=== PATIENT | male | born 1990 | race Caucasian/White ===

== ENCOUNTER 2016-11-19 17:23 | Emergency (ER) | payer OTHER ==
[~2016-11-19] VITALS: Ht 170.2 cm; Wt 56.8 kg
[2016-11-19 18:56] VITALS: BP 116/78; PULSE 76; RESP 16; O2SAT 100
--- NOTE | 2016-11-19 19:12 | ED.REPORT ---
HPI- Male Date of Service Nov 19, 2016 ED Provider: Zaire Naylor DO A 26 year old male with a history of IV drug use presents to the ED complaining of right sided testicular pain. This is accompanied by an inability to maintain an erection. The pt has recently been informed that he was exposed to syphilis several months ago. Nursing Notes Stated Complaint: TESTICULAR PAIN Chief Complaint: Male Abdominal Pain Nursing Notes Reviewed: Yes Allergies: Coded Allergies: No Known Allergies (Unverified , 08/16/16) General Time Seen by MD: 19:11 Chief Complaint Testicle painful right Hx Obtained From: Patient Arrived By: Walk-in Onset Occurred: More than a week ago... Recent Healthcare: No recent doctor visit, No recent hospitalization Similar Sx Previous: No Past Medical History Past Medical History Syphilis exposure Asthma Past Surgical History none reported Smoking History Current Every Day Smoker Social History Alcohol Use: Denies alcohol use Drug Use: IV drugs Ambulatory Status Independent Review of Systems Review of Systems Note: inability to maintain erection Constitutional: Denies: Fever Male: Reports Testicular pain Musculoskeletal: Denies: Back pain, Neck pain Skin: Denies Rash Complete sys rev & neg: except as marked. Physical Exam Initial Vital Signs Vital Signs (First) Date Time Temp Pulse Resp B/P Pulse Ox O2 Delivery O2 Flow Rate FiO2 11/19/16 18:56 36.8 76 16 116/78 100 Room Air Initial VS: Reviewed exam deferred General/Constitutional: Awake, Alert Abdomen: Atraumatic, Soft, Non-tender Skin: Atraumatic, Color NL, No rash, Warm, Dry Head / Eyes: Atraumatic, Normocephalic, PERRL, EOMI ENT: Atraumatic, Airway patent, Mucous membranes moist Neck: Atraumatic, Supple, Full range of motion Respiratory / Chest: Atraumatic, Breath sounds NL, Breath sounds = bilat, No respiratory distress Cardiovascular: Heart rate NL, Regular rhythm, Heart sounds NL Back: Atraumatic, Full range of motion Upper Extremity / MS: Atraumatic, Full range of motion Lower Extremity / Pelvis / MS: Atraumatic, Full range of motion Neurologic: Oriented X3, Speech NL, No motor deficits, No sensory deficits Psychiatric: Affect NL, Mood NL Interpretation & Diagnostics Interpretation & Diagnostics: Testicular US: IMPRESSION: 1. No evidence for testicular torsion. No testicular mass. 2. No evidence for epididymitis. 3. A small calcific density in the inferior medial aspect of the right testes. Microabscesses of the testes has increased risk for testicular neoplasm. Recommend patient education for self examination. Dictated by: Jennifer Paniagua M.D. on 11/19/2016 at 20:50 Approved by: Jennifer Paniagua M.D. on 11/19/2016 at 20:55 Lab Results Interpretation Test 11/19/16 21:40 Pulse Oximetry Interpretation Pulse Oximetry Interpretation: 100% on room air Pulse Oximetry: Pulse Ox normal Re-Eval/Medical Decision Med Decision/Clinical Course Possible exposure to syphilis. No active ulcerations or penile discharge at this time. Tender right testicle. Ultrasound shows a calcific deposit within the testicle. RPR has been ordered. We will medicate empirically for syphilis treatment as well as GC/chlamydia. Torsion ruled out. Testicular abscess ruled out. We will refer to urology for follow-up. Recommend testicular self examination. Naprosyn for pain. HIV testing to be discussed with his primary care. Follow-up with the RPR as well with his primary care. Definitive testing indicated if the RPR is positive. Source of Hx: Old records Re-Evaluation/Progress : Time of Eval: 21:00 Patient Status: Condition improved Re-Evaluation/Progress Note: Pt rechecked, who is resting comfortably. He is informed of his US result, diagnosis, and plan for discharge. The pt understands and agrees with the plan. All questions are addressed at this time. Counseled Regarding: Diagnosis, Lab results, Need for follow-up, When/why to return to ED Discharge & Departure Impression: Primary Impression: Testicular pain, right Additional Impression: Exposure to syphilis Disposition: Home Discharge Condition All VS Reviewed: Yes Condition: Stable Patient Instructions: Syphilis (ED), Testicle Pain (ED), Testicular Self- examination (DC) Additional Instructions: The ultrasound revealed a small calcium deposit in your right testicle. This needs to be followed up with closely. You need to perform testicular self- examinations. Read the instructions given. I would like you to set up a follow -up with your primary care physician as well as urology. Due to the fact that you were possibly exposed to syphilis you have been treated. Syphilis is notoriously associated with other sexually-transmitted infections. You have been treated for possible gonorrhea as well as Chlamydia. I would like you to take doxycycline twice daily for 7 days. This too is to prevent or treat sexual transmitted infections. Avoid direct sunlight and sun lamps while taking the doxycycline. Follow-up with the syphilis blood test with your primary care physician this week. Consider HIV testing as well. Take Naprosyn twice daily as directed for pain. Do not hesitate to return if any problem or any worsening symptoms. Referrals: Elaine Cruz MD [facility] Mitch Attestation Portions of this note were transcribed by Mercedes Galvan. I, Dr. Naylor personally performed the history, physical exam and medical decision-making; I reviewed and confirmed the accuracy of the information in the transcribed note. Signed by: Mitch Craig, 11/19/2016 and 22:36. copies to: Elaine Cruz MD; [facility] Zaire Naylor DO Nov 19, 2016 19:12 MERCEDES GALVAN Nov 19, 2016 19:29
--- NOTE | 2016-11-19 20:56 | DRSVH ---
PROCEDURE: US TESTICULAR SONOGRAM WITH DOPPLER INDICATIONS: 26 year-old man with right testicular pain. TECHNIQUE: Real-time scanning was performed of the scrotum and testicles, with image documentation. Color and p ulse Doppler interrogation was performed of both testicles. COMPARISON: None. FINDINGS: Right: Testicle is normal in size at 4.6 x 2.0 x 3.1 cm, and homogenous in echotexture. There is a calcific density in the inferior mid aspect of the testes. Epididymis is normal in overall size and m orphology. No hydrocele or varicoceles. Overlying scrotal skin is normal in thickness. Left: Testicle is normal in size at 4.1 x 1.9 x 2.7 cm, and homogeneous in echotexture. Epididymis is normal in overall size and morphology. No hydrocele or varicoceles. Overlying scrotal skin is no rmal in thickness. Doppler: Color and pulse Doppler demonstrate normal and symmetric arterial and venous flow in both t esticles. No hyperemia in epididymides. IMPRESSION: 1. No evidence for testicular torsion. No testicular mass. 2. No evidence for epididymitis. 3. A small calcific density in the inferior medial aspect of the right testes. Microabscesses of the testes has increased risk for testicular neoplasm. Recommend patient education for self examination. Dictated by: Jennifer Paniagua M.D. on 11/19/2016 at 20:50 Approved by: Jennifer Paniagua M.D. on 11/19/2016 at 20:55
[2016-11-19] MEDS ORDERED: cefTRIAXone Inj 250 MG, Lidocaine PF 1% Inj 0.9 ML in Syringe 1 EACH IM ONE (21:10)
[2016-11-19 21:38] VITALS: BP 116/78; PULSE 76; RESP 16; O2SAT 100
== END 2016-11-19 21:39 | disposition home or self-care (01) ==
LOC: SED 17:23
DX: N50.811 Right testicular pain (principal); J45.909 Unspecified asthma, uncomplicated; F17.200 Nicotine dependence, unspecified, uncomplicated; Z20.2 Contact with and (suspected) exposure to infections with a predominantly sexual mode of transmission
CPT/HCPCS: 36415; 76870; 86592; 93975; 96372; 99285; J0561; J0696